=== PATIENT | female | born 1980 | race Caucasian/White ===

== ENCOUNTER 2017-04-10 10:39 | Emergency (ER) | payer OTHER ==
[2017-04-10 10:52] VITALS: BP 116/68
--- NOTE | 2017-04-10 10:58 | UC ---
Throat Pain/Nasal [place] HPI - HPI Summary HPI Summary: Pt presents with "swollen glands". 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 This morning pt woke up with swollen glands b/l neck with no other symptoms. The swelling improved as the morning progressed, but she is here today concerned about this. She also says that herself and members of her household have been sick with flu like symptoms for over a week (fatigue, body aches, and dry cough). Denies fever , chills, sore throat, SOB, chest pain, abdominal pain, n/v/d/c - History of Current Complaint Chief Complaint: UCGeneralIllness Stated Complaint: SWOLLEN GLANDS Time Seen by Provider: 04/10/17 10:53 Hx Obtained From: Patient Hx Last Menstrual Period: 03/13/17 Onset/Duration: Gradual Onset Severity: Mild Pain Intensity: 2 Pain Scale Used: 0-10 Numeric Cough: Nonproductive - Allergies/Home Medications Allergies/Adverse Reactions: Allergies Allergy/AdvReac Type Severity Reaction Status Date / Time No Known Allergies Allergy Verified 04/10/17 10:48 PMH/Surg Hx/FS Hx/Imm Hx Previously Healthy: Yes - Surgical History Surgical History: None - Family History Known Family History: Positive: None - Social History Occupation: Employed Full-time Lives: With Family Alcohol Use: None Substance Use Type: None Smoking Status (MU): Never Smoked Tobacco Review of Systems Constitutional: Negative Skin: Negative Eyes: Negative ENT: Other - "swollen glands" Respiratory: Cough Cardiovascular: Negative Gastrointestinal: Negative Neurological: Negative Psychological: Negative All Other Systems Reviewed And Are Negative: Yes Physical Exam Triage Information Reviewed: Yes Appearance: Well-Appearing, No Pain Distress, Well-Nourished Vital Signs: Initial Vital Signs Temp 97.9 F 04/10/17 10:49 Pulse 62 04/10/17 10:49 Resp 15 04/10/17 10:49 BP 116/68 04/10/17 10:49 Pulse Ox 100 04/10/17 10:49 Vital Signs Reviewed: Yes Eyes: Positive: Conjunctiva Clear. Negative: Conjunctiva Inflamed, Discharge ENT: Positive: Hearing grossly normal, Pharynx normal, TMs normal, Uvula midline. Negative: Pharyngeal erythema, Nasal congestion, Nasal drainage, TM bulging, TM dull, TM red, Tonsillar swelling, Tonsillar exudate, Hoarse voice, Sinus tenderness Neck: Positive: Supple, Nontender, Other: - No lymphadenopathy appreciated Respiratory: Positive: Chest non-tender, Lungs clear, Normal breath sounds, No respiratory distress, No accessory muscle use Cardiovascular: Positive: RRR, No Murmur, Pulses Normal Neurological: Positive: Alert Psychological: Positive: Age Appropriate Behavior Skin: Negative: rashes Throat Pain/Nasal Course/Dx - Course Course Of Treatment: POC strep negative. She is very concerned about the "swollen glands" she experienced this morning. She wishes to try persian herbs as remedies, but would like an antibiotic if her symptoms do not improve with that. - Differential Dx/Diagnosis Provider Diagnoses: Cervical Lymphadenopathy Discharge - Discharge Plan Condition: Stable Disposition: HOME Prescriptions: Amoxicillin PO (*) [Amoxicillin 500 MG CAP*] 500 mg PO Q12H #14 cap Patient Education Materials: Lymphadenopathy (ED) Referrals: Stuart Nickerson MD [Primary Care Provider] - Additional Instructions: If you develop a fever, shortness of breath, chest pain, new or worsening symptoms - please call your PCP or go to the ED.
== END 2017-04-10 11:35 | disposition home or self-care (01) ==
LOC: UCEAST 10:39
DX: R59.1 Generalized enlarged lymph nodes (principal)
CPT/HCPCS: 87651; 99212; G0463